=== PATIENT | male | born 1970 | race African-American/Black ===

== ENCOUNTER 2025-08-26 14:31 | Emergency (ER) | payer OTHER, MEDICAID ==
[~2025-08-26] VITALS: Ht 172.7 cm; Wt 118.0 kg
[2025-08-26 14:33] VITALS: O2SAT 100
[2025-08-26 14:45] VITALS: BP 163/90; PULSE 98; RESP 16; TEMP 36.9; O2SAT 98
[2025-08-26] MEDS ORDERED: LIDOCAINE HCL 1% 20ML VIAL INFIL ONE (16:00)
[2025-08-26] MEDS: LIDOCAINE HCL 1% 20ML VIAL INFIL SCH (18:20)
[2025-08-26] MEDS ORDERED: IBUP-1455 PO (18:52)
[2025-08-26] MEDS: TETANUS, DIPHTHERIA, PERTUSSIS VAC/PF 0.5ML (>10YR OLD) IM ONE (19:09)
== END 2025-08-26 19:31 | disposition home or self-care (01) ==
LOC: ER 14:31
DX: S61.210A Laceration without foreign body of right index finger without damage to nail, initial encounter (principal); I10 Essential (primary) hypertension; X78.0XXA Intentional self-harm by sharp glass, initial encounter; Y93.89 Activity, other specified; Y92.89 Other specified places as the place of occurrence of the external cause; Y99.8 Other external cause status
CPT/HCPCS: 99283; 73140; 90715; 12001; 90471; J2003